=== PATIENT | male | born 1940 | race Caucasian/White ===

== ENCOUNTER 2016-12-14 17:05 | Emergency (ER) | payer MEDICARE ==
[~2016-12-14] VITALS: Ht 170.2 cm; Wt 90.7 kg
--- NOTE | 2016-12-14 17:10 | NUR ---
[id number], CAME TO ER FOR SVT, PATIENT WAS VISITING HIS DAD WHO WAS CONFINED IN THIS HOSPITAL WHEN THE PATIENT NOTICED RAPID HR. SKIN IS WARM AND DRY. RESP IS EVEN AND UNLABORED WITH NAD NOTED. PLACED ON THE MONITOR. DR LEIJA AT FOR EVAL.
[2016-12-14 17:23] LABS: BASOPHILS # (AUTO) 0.1 /CMM (0.0-0.2); BASOPHILS % (AUTO) 0.7 % (0.0-2.0); EOSINOPHILS # (AUTO) 0.2 /CMM (0.0-0.7); EOSINOPHILS % (AUTO) 2.1 % (0.0-6.0); HEMATOCRIT 51 % (39-51); HEMOGLOBIN 17.3 g/dL (13.5-17.5); LYMPHOCYTES # (AUTO) 2.4 /CMM (0.8-4.8); LYMPHOCYTES % (AUTO) 23.1 % (20.0-44.0); MEAN CORPUSCULAR HEMOGLOBIN 31 PG (26.0-33.0); MEAN CORPUSCULAR HGB CONC 34 g/dl (31.0-36.0); MEAN CORPUSCULAR VOLUME 93 fL (80-96); MONOCYTES # (AUTO) 0.9 /CMM (0.1-1.30); MONOCYTES % (AUTO) 8.4 % (2.0-12.0); NEUTROPHILS % (AUTO) 65.7 % (43.0-81.0); PLATELET COUNT (AUTO) 204 /CMM (150-450); RDW COEFFICIENT OF VARIATION 13.6 (11.5-15.0); RED BLOOD CELL COUNT(AUTO) 5.55 MIL/uL (4.5-6.0); WHITE BLOOD COUNT (AUTO) 10.6 K/uL (4.3-11.0)
[2016-12-14 17:35] LABS: CALCIUM, SERUM 10.1 mg/dL (8.5-10.1); CARBON DIOXIDE 26 mmol/L (21-32); CHLORIDE 109 mmol/L (98-107); CREATININE 1.4 mg/dL (0.6-1.3); GLUCOSE 114 mg/dL (74-106); POTASSIUM 3.6 mmol/L (3.5-5.1); SODIUM SERUM 141 mmol/L (136-145); UREA NITROGEN, BLOOD 19 mg/dL (7-18)
[2016-12-14] MEDS ORDERED: ALLO300T2 PO (17:37)
[2016-12-14] MEDS ORDERED: ASPI81TA2 PO (17:37)
[2016-12-14] MEDS ORDERED: LISI-607 PO (17:37)
[2016-12-14] MEDS ORDERED: CHOL100044 PO (17:37)
[2016-12-14] MEDS ORDERED: ATOR10TA PO (17:37)
[2016-12-14 17:38] LABS: PROTHROMBIN TIME 10.4 SECS (9.5-12.7)
[2016-12-14 17:42] LABS: ALANINE AMINOTRANSFERASE 34 U/L (12-78); ALBUMIN 4.4 g/dL (3.4-5.0); ALKALINE PHOSPHATASE 71 U/L (46-116); ASPARTATE AMINOTRANSFERASE 16 U/L (15-37); BILIRUBIN,DIRECT 0.1 mg/dL (0.0-0.2); BILIRUBIN,TOTAL 0.4 mg/dL (0.2-1.0); TOTAL PROTEIN, SERUM 7.8 g/dL (6.4-8.2)
[2016-12-14 17:43] LABS: TROPONIN I < 0.017 ng/mL (0.00-0.056)
[2016-12-14] MEDS ORDERED: DILT120C2 PO (17:53)
[2016-12-14 18:20] VITALS: BP 128/81
--- NOTE | 2016-12-14 18:20 | NUR ---
IV removed. Catheter intact and site benign. Pressure and 4x4 applied to site. No bleeding noted.Patient discharged to home in stable condition. Written and verbal after care instructions given. Patient verbalizes understanding of instruction.
== END 2016-12-14 18:34 | disposition home or self-care (01) ==
LOC: ER 17:07
DX: I47.1 Supraventricular tachycardia (principal); I10 Essential (primary) hypertension; Z88.2 Allergy status to sulfonamides
CPT/HCPCS: 36415; 71010-TC; 80048-TC; 80076-TC; 84484-TC; 85025-TC; 85730-TC; A4606; J0153; Z7610